=== PATIENT | male | born 1965 | race Two or more races ===

== ENCOUNTER 2017-07-25 09:03 | Day surgery (SDC) | payer OTHER ==
[2017-07-25] MEDS ORDERED: PROPOFOL 40 ML (09:56)
== END 2017-07-25 11:13 | disposition home or self-care (01) ==
LOC: GIL 09:03
DX: Z12.11 Encounter for screening for malignant neoplasm of colon (principal); D12.6 Benign neoplasm of colon, unspecified; I10 Essential (primary) hypertension; E66.9 Obesity, unspecified; Z68.34 Body mass index [BMI] 34.0-34.9, adult
CPT/HCPCS: 45380; 88305